=== PATIENT | female | born 1995 | race Asian ===

== ENCOUNTER 2020-05-17 15:56 | Emergency (ER) | payer OTHER ==
[2020-05-17] MEDS ORDERED: Diphtheria,Pertussis(Acell),Tetanus Vaccine 0.5 ML Syringe IM ONE (16:20)
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
--- NOTE | 2020-05-17 16:52 | CRLCT ---
INDICATION: Head injury, headache. COMPARISON: None. TECHNIQUE: CT of the head without IV contrast. Coronal and sagittal reconstructions are provided. FINDINGS: No intracranial hemorrhage, mass effect, or evidence of acute infarct. No midline shift. No abnormal extra-axial fluid collections. Normal caliber ventricular system. Orbits and extraocular muscles are symmetric. Paranasal sinuses and mastoid air cells are clear. No acute fracture. Mild soft tissue swelling overlying the midline forehead. IMPRESSION: : 1. No acute intracranial findings. 2. Mild soft tissue swelling overlying the midline forehead. Please note that all CT scans at this facility use dose modulation, iterative reconstruction, and/or weight-based dosing when appropriate to reduce radiation dose to as low as reasonably achievable. Dictated by Francesca Cortez MD @ May 17 2020 4:46PM Signed by Dr. Fracnesca Cortez @ May 17 2020 4:51PM
== END 2020-05-17 17:44 | disposition home or self-care (01) ==
LOC: JP.ED 15:56
DX: S06.0X9A Concussion with loss of consciousness of unspecified duration, initial encounter (principal); Z23 Encounter for immunization; V86.52XA Driver of snowmobile injured in nontraffic accident, initial encounter
CPT/HCPCS: 36415; 70450; 80053; 85025; 85610; 85730; 90471; 90715; 99282; 99284-25